=== PATIENT | female | born 1985 | race Caucasian/White ===

== ENCOUNTER 2018-04-09 21:26 | Outpatient (CLI) | payer OTHER | END 2018-04-09 23:32 | disposition home or self-care (01) | LOC: M LDO 21:26 | DX: O36.8130 Decreased fetal movements, third trimester, not applicable or unspecified (principal); O99.280 Endocrine, nutritional and metabolic diseases complicating pregnancy, unspecified trimester; E03.9 Hypothyroidism, unspecified; O99.345 Other mental disorders complicating the puerperium; F41.9 Anxiety disorder, unspecified; O99.820 Streptococcus B carrier state complicating pregnancy; Z3A.40 40 weeks gestation of pregnancy | CPT/HCPCS: 59025 ==

== ENCOUNTER 2018-04-14 14:50 | Inpatient (IN) | payer OTHER ==
[2018-04-14] MEDS ORDERED: LR 1,000 ML IV (15:05)
[2018-04-14] MEDS: LACTATED RINGER'S 1000 ML IV (15:49)
[2018-04-14] MEDS: PENICILLIN G POTASSIUM IV 5 MU in D5W MINI-BAG PLUS 100 ML IV (15:49)
[2018-04-14 16:47] LABS: HEMATOCRIT 37.3 % (36.0-47.0); HEMOGLOBIN 11.8 g/dl (12.0-15.5); MEAN CORPUSCULAR HGB CONC 31.6 g/dl (32.0-36.5); MEAN CORPUSCULAR VOLUME 85.4 fl (80.0-96.0); PLATELET COUNT, AUTOMATED 302 10^3/uL (150-450); RED BLOOD COUNT 4.37 10^6/uL (4.00-5.40); RED CELL DISTRIBUTION WIDTH 13.9 % (11.5-14.5); WHITE BLOOD COUNT 17.5 10^3/uL (4.0-10.0)
[2018-04-14] MEDS ORDERED: OXYTOCIN 30 UNITS IN 0.9% NaCl 500ML IV BAG (J2590) As Ordered (16:51)
[2018-04-14] MEDS: LIDOCAINE 1% MDV 20ML VIAL SC (17:00)
[2018-04-14] MEDS ORDERED: RHOGAM 300 MCG (1500 IU) INJ (J2790) IM (18:00)
[2018-04-14] MEDS ORDERED: MEASLES,MUMPS,RUBELLA VACCINE INJ (MMR-II) (90707) SC (18:00)
[2018-04-14] MEDS ORDERED: ONDANSETRON 4MG/2ML VIAL (J2405) IV (18:00)
[2018-04-14] MEDS: OXYTOCIN DRIP 30 UNITS in APPROPRIATE DILUENT 1 EA IV (18:00)
[2018-04-14] MEDS ORDERED: DOCUSATE SODIUM 100 MG CAP PO (18:00)
[2018-04-14] MEDS ORDERED: DIBUCAINE 1% OINTMENT 30GM TOP (18:00)
[2018-04-14] MEDS: IBUPROFEN 800 MG TAB PO (18:46)
[2018-04-14] MEDS ORDERED: PENICILLIN G POTASSIUM IV 2.5 MU in APPROPRIATE DILUENT 1 EA IV (20:00)
[2018-04-14] MEDS: ACETAMINOPHEN 500 MG TAB PO (20:54)
[2018-04-15] MEDS: PRENATAL VITAMINS CHEWABLE TABLET PO (09:17)
[2018-04-16] MEDS: PRENATAL VITAMINS CHEWABLE TABLET PO (08:01)
== END 2018-04-16 11:55 | disposition home or self-care (01) | DRG 775 ==
LOC: M LDI 14:50 → M OBS 20:29
PROVIDERS: Obstetrics & Gynecology
PROC: 10E0XZZ Delivery of Products of Conception, External Approach (ICD-10-PCS; principal; 2018-04-14)
PROC: 0HQ9XZZ Repair Perineum Skin, External Approach (ICD-10-PCS; 2018-04-14)
DX: O48.0 Post-term pregnancy (principal); Z37.0 Single live birth; Z3A.40 40 weeks gestation of pregnancy; Z79.899 Other long term (current) drug therapy; O99.820 Streptococcus B carrier state complicating pregnancy; O69.82X0 Labor and delivery complicated by other cord entanglement, without compression, not applicable or unspecified; O70.0 First degree perineal laceration during delivery

== ENCOUNTER → 2024-03-15 | Outpatient (REF) | payer OTHER ==
[~2024-03-15] MED LIST: COLA100C5 PO; IBUP-1114 PO; LEVO125T4 PO; MAPA500T2 PO; PRENTAB9 PO; TUMS500C PO
[2024-03-17 15:22] LABS: HPV APTIMA Not Detected (Not Detected)
== END ==
LOC: M SFHCWAGY 15:12
PROVIDERS: ATTEND Nurse Practitioner Family
DX: R10.2 Pelvic and perineal pain (principal); Z12.4 Encounter for screening for malignant neoplasm of cervix
CPT/HCPCS: 87070; 87077; 87186; 87624; G0123; G0463

== ENCOUNTER → 2024-04-05 | Outpatient (CLI) | payer OTHER | LOC: M RAD 16:48 | PROVIDERS: ATTEND Nurse Practitioner Family | DX: R10.2 Pelvic and perineal pain (principal) ==

== ENCOUNTER → 2025-03-27 | Outpatient (REF) | payer OTHER ==
[2025-03-29 14:43] LABS: HPV APTIMA Not Detected (Not Detected)
== END ==
LOC: M PLALAB 10:18
PROVIDERS: ATTEND Nurse Practitioner Family
DX: Z12.4 Encounter for screening for malignant neoplasm of cervix (principal); R87.610 Atypical squamous cells of undetermined significance on cytologic smear of cervix (ASC-US)
CPT/HCPCS: 87070; 87077; 87186; 87624; G0123